=== PATIENT | female | born 1970 | race Caucasian/White ===

== ENCOUNTER → 2017-09-30 09:32 | Outpatient (CLI) | payer OTHER, SELFPAY ==
--- NOTE | 2017-09-30 09:38 | MRI_ITS ---
STUDY: MRI BRAIN WITHOUT CONTRAST REASON FOR EXAM: Female, 46 years old. Speech difficulty -- episode speech change, left facial numbness. TECHNIQUE: Standardized multiplanar fat and water weighted pulse sequences were obtained. COMPARISON: None. FINDINGS: Normal size of the ventricles and extra-axial spaces for the patient's age. Normal white matter tracts of the supratentorial brain. Normal bilateral basal ganglia. Normal thalami. There is no extra-axial fluid accumulation. Normal flow voids within the major intracranial circulation suggesting patency by spin echo criteria. Normal sella turcica, pituitary gland, infundibular stalk, optic chiasm and hypothalamus. Normal tectal plate and pineal gland. Normal midbrain, keven and medulla. Normal cerebellum. Normal basal cisterns. Normal bilateral temporal bones. Normal bilateral internal auditory canals. No demonstrated orbital abnormality, within the constraints of a routine brain study. Normal visualized paranasal sinuses. Normal calvarium and skull base. Normal visualized soft tissue structures. Normal visualized upper cervical spine. MRI/Brain without Contrast IMPRESSION: Normal unenhanced MRI of the brain. Electronically Signed: Tonya Estrella MD at 8:13 EDT Tel , Service support ,
--- NOTE | 2017-09-30 09:44 | CDU_ITS ---
Reason For Study: difficulty with speech Rt. Velocities/BP Lt. Velocities/BP Prox CCA 77.4/21.1 cm/sec. Prox CCA 76.8/17.6 cm/sec. Mid CCA 80.3/25.2 cm/sec. Mid CCA 66.3/24.0 cm/sec. Dist CCA 75.0/24.0 cm/sec. Dist CCA 67.4/29.3 cm/sec. Prox ICA 48.7/18.2 cm/sec. Prox ICA 46.3/19.9 cm/sec. Mid ICA 52.8/19.3 cm/sec. Mid ICA 42.4/21.0 cm/sec. Dist ICA 94.4/34.0 cm/sec. Dist ICA 90.9/36.9 cm/sec. Rt. ICA/CCA = 1.2. Lt. ICA/CCA = 1.4. Prox ECA 82.7/18.8 cm/sec. Prox ECA 85.6/26.4 cm/sec. Rt. Vert. 40.5/15.2 cm/sec. Lt. Vert. 34.3/11.2 cm/sec. Right Extracranial There is intimal thickening but no significant atherosclerotic plaque noted in the right common carotid artery. There is intimal thickening but no significant atherosclerotic plaque noted in the right internal carotid artery. There is intimal thickening but no significant atherosclerotic plaque noted in the right external carotid artery. Antegrade flow is noted in the right vertebral artery. Left Extracranial There is intimal thickening but no significant atherosclerotic plaque noted in the left common carotid artery. There is intimal thickening but no significant atherosclerotic plaque noted in the left internal carotid artery. There is intimal thickening but no significant atherosclerotic plaque noted in the left external carotid artery. Antegrade flow is noted in the left vertebral artery. Procedure Carotid Duplex [id number]. The exam was diagnostic. Exam performed in department. Interpretation Summary No significant atherosclerotic plaque or stenosis noted in the internal carotid arteries bilaterally. Flow within the vertebral arteries is antegrade bilaterally. Ordering Physician: Seema Amin Performed By: Shawn Pinon RVT
== END ==
PROVIDERS: Family Provider Internal Medicine; PCP Internal Medicine; Visit Provider Internal Medicine
DX: R47.9 Unspecified speech disturbances (principal)
CPT/HCPCS: 70551; 93880

== ENCOUNTER → 2017-10-15 12:44 | Outpatient (CLI) | payer OTHER, SELFPAY ==
--- NOTE | 2017-10-15 12:47 | ECHOD_ITS ---
Reason For Study: TIA Procedure This was a 2D Doppler, Color Flow transthoracic echocardiogram. Exam performed in department. Left Ventricle Normal LV size. Left ventricular systolic function is normal. The estimated ejection fraction is 65 %. No regional wall motion abnormalities noted. Right Ventricle Normal RV size. Normal systolic function. Atria Normal left atrium. Normal right atrium. Intact atrial septum. Mitral Valve Normal mitral valve. Trivial eccentric mitral valve insufficiency. Tricuspid Valve Normal tricuspid valve. Unable to estimate RV systolic pressure due to inadequate jet, pulmonary artery pressure probably normal. Aortic Valve Normal aortic valve. Trisinus/trileaflet aortic valve. Pulmonic Valve Normal pulmonic valve. Great Vessels Normal aortic root. The pulmonary artery is normal size. Normal inferior vena cava. Pericardium/Pleural No pericardial effusion. Medication 22 gauge I.V. with prn adaptor inserted into right arm. Performed a rapid injection of agitated mix of 9 cc saline and 1cc air to assess for atrial septal defect. MMode/2D Measurements & Calculations LVIDd: 4.4 cm IVSd: 0.75 cm Ao root diam: 3.2 cm LVIDs: 2.1 cm LVPWd: 0.87 cm LA dimension: 3.3 cm RVDd: 3.2 cm FS: 52.3 % LAV(MOD-bp): 35.4 ml LAV(MOD-bp) Indexed: 19.6 ml/m2 LA A4 area: 13.3 cm2 RA A4 area: 12.7 cm2 LAV(MOD-sp2): 38.8 ml LAV(MOD-sp4): 31.5 ml Time Measurements MV dec time: 0.25 sec Doppler Measurements & Calculations MV E max abisai: 80.9 cm/sec Lat Peak E' Abisai: 12.3 cm/sec Med Peak E' Abisai: 10.3 cm/sec MV A max abisai: 92.2 cm/sec E/E' lat: 6.6 E/E' med: 7.8 MV E/A: 0.88 MV V2 max: 102.1 cm/sec MV P1/2t max abisai: 102.1 cm/sec Ao V2 max: 173.3 cm/sec MV max P.2 mmHg MV P1/2t: 69.8 msec Ao max P.0 mmHg MV V2 mean: 55.3 cm/sec MV dec slope: 428.3 cm/sec2 Ao V2 mean: 118.0 cm/sec MV mean P.5 mmHg MVA(P1/2t): 3.2 cm2 Ao mean P.2 mmHg MV V2 VTI: 24.2 cm Ao V2 VTI: 29.1 cm LV V1 max: 158.3 cm/sec PA V2 max: 114.6 cm/sec TR max abisai: 267.2 cm/sec LV V1 max P.0 mmHg TR max P.6 mmHg LV V1 mean P.2 mmHg LV V1 mean: 94.3 cm/sec LV V1 VTI: 26.2 cm Interpretation Summary Normal LV size. Left ventricular systolic function is normal. The estimated ejection fraction is 65 %. No regional wall motion abnormalities noted. Intact atrial septum Structurally normal valves. Ordering Physician: Seema Amin Referring Physician: Seema Amin Performed By: Henry Mendoza RCS
== END ==
PROVIDERS: Family Provider Internal Medicine; PCP Internal Medicine; Visit Provider Internal Medicine
DX: R47.9 Unspecified speech disturbances (principal)
CPT/HCPCS: 93306; Q9957; A4216

== ENCOUNTER → 2022-07-13 | Outpatient (CLI) | payer BC, SELFPAY ==
--- NOTE | 2022-07-13 14:15 | BI_ITS ---
MAMMOGRAPHY - BILATERAL SCREENING REASON FOR EXAM: Female, 51 years old. Routine annual screening examination. PERTINENT HISTORY: Grandmother with breast cancer. Remote right excisional breast biopsy. TECHNIQUE: Digital bilateral breast vannesa (3D mammographic acquisition) in the CC and MLO projections. 2-D mediolateral oblique (MLO) and craniocaudad (CC) views of both breasts were obtained. CAD: Full Field Digital Mammography with Computer Added Detection was performed. COMPARISON: Comparison is made with prior study 08/31/2016. FINDINGS: Breast Composition: The breasts are heterogeneously dense, which may obscure small masses. There are no dominant masses or suspicious calcifications. Stable small benign-appearing bilateral axillary lymph nodes. No other significant abnormalities are identified. There has been no significant change since the prior study. BI/SCRN MAMM (CAD)W/VANNESA BILAT IMPRESSION: Stable bilateral screening mammogram. Yearly follow-up mammogram recommended. (A) ASSESSMENT CATEGORY: BIRADS Category 2: Benign. A letter regarding these results will be sent to the patient by the facility within 30 days. Approximately 10% of breast cancers are not detected by mammography. A normal mammogram should not delay biopsy of a clinically suspicious abnormality. [id number] Electronically Signed: Tomás Bianchi MD at 15:25 EST ,
== END | disposition home or self-care (01) ==
LOC: OPBI 14:09
PROVIDERS: PCP Internal Medicine; Referring Provider Nurse Practitioner Family; Visit Provider Nurse Practitioner Family
DX: Z12.31 Encounter for screening mammogram for malignant neoplasm of breast (principal); R92.8 Other abnormal and inconclusive findings on diagnostic imaging of breast
CPT/HCPCS: 77063; 77067

== ENCOUNTER → 2024-03-14 | Outpatient (CLI) | payer BC, SELFPAY ==
--- NOTE | 2024-03-14 12:31 | CT_ITS ---
STUDY: CT ABDOMEN AND PELVIS WITH CONTRAST REASON FOR EXAM: Female, 53 years old. lower abdominal pain and diarrhea RADIATION DOSAGE (If Supplied By Facility): CTDIvol = ( 12.86 ) mGy, DLP = ( 853.09 ) mGycm TECHNIQUE: Transaxial images were obtained from the dome of the diaphragm to the symphysis pubis without oral contrast. Oral and amp; IV Gastrografin and amp; 100mL Isovue-370 was administered. Sagittal and coronal images were reconstructed. Individualized dose optimization techniques were used for this CT. COMPARISON: . FINDINGS: The visualized lung bases are unremarkable. The visualized portions of the heart are within normal limits. There is decreased attenuation of the liver consistent with steatosis. There is hepatomegaly. Normal gallbladder and extrahepatic biliary system. Normal spleen. Normal pancreas. Normal bilateral adrenal glands. Normal right kidney. Normal left kidney. Normal visualized stomach. Normal small intestine. Moderate fecal retention throughout the colon. Possible nonspecific mild inflammatory changes surrounding the descending colon. Findings could represent nonspecific colitis. If clinically indicated, colonoscopy is suggested. The appendix is visualized and appears normal. Normal abdominal aorta. Normal inferior vena cava. Normal retroperitoneum. Normal urinary bladder. Normal visualized uterus. Normal abdominal wall. Normal osseous structures. CT/Abdomen/Pelvis WITH Contrast IMPRESSION: Possible nonspecific mild inflammatory changes surrounding the descending colon. Findings could represent nonspecific colitis. If clinically indicated, colonoscopy is suggested. No other definite acute or significant abnormality seen. Electronically Signed: Shmuel Montgomery MD at 15:26 EDT ,
[2024-03-14 14:46] LABS: CREATININE FINGERSTICK < 1.0 mg/dL (0.55-1.02); EGFR FINGERSTICK > 60.0000 mL/min (>60)
== END | disposition home or self-care (01) ==
LOC: CT 12:30
PROVIDERS: PCP Internal Medicine; Referring Provider Nurse Practitioner Family; Visit Provider Nurse Practitioner Family
DX: Z01.812 Encounter for preprocedural laboratory examination (principal); R10.30 Lower abdominal pain, unspecified
CPT/HCPCS: 74177; Q9967